=== PATIENT | male | born 1985 | race Caucasian/White ===

== ENCOUNTER 2017-08-07 08:40 | Outpatient (CLI) | payer OTHER ==
--- NOTE | 2017-08-07 14:14 | CT ---
CT ABDOMEN AND PELVIS WITH IV AND ORAL CONTRAST: History Abdominal pain. Weight loss. FINDINGS: Lung bases are clear. The liver, spleen, left kidney, adrenal glands, and pancreas are within normal limits. Small exophytic cyst projects anteriorly from the cortex of the right kidney. Urinary blad jason is unremarkable. Appendix is surgically absent. IMPRESSION: No significant abnormalities are demonstrated to explain the patient's symptoms. POS: [facility]
== END 2017-08-07 08:41 | disposition home or self-care (01) ==
LOC: SCSCT 08:40
PROVIDERS: ATTEND Internal Medicine
DX: K30 Functional dyspepsia (principal)
CPT/HCPCS: 74177